=== PATIENT | female | born 1960 ===

== ENCOUNTER 2019-03-21 08:47 | Inpatient (IN) | payer MEDICAID ==
[2019-03-21 08:54] VITALS: BMI 61.0
--- NOTE | 2019-03-21 10:21 | ED PDOC ---
HPI: Abdomen Time Seen by Provider: 03/21/19 09:32 Chief Complaint (Nursing): Abdominal Pain Chief Complaint (Provider): Abdominal Pain History Per: Patient History/Exam Limitations: no limitations Onset/Duration Of Symptoms: Days Current Symptoms Are (Timing): Still Present Associated Symptoms: Nausea, Vomiting. denies: Chest Pain Additional Complaint(s): 58 year old female with a past medical history of hypertension, hypercholesterolemia, diabetes, and depression who is presenting to the ED for evaluation of abdominal pain and vomiting ongoing for 2 weeks. Patient states that she is unable to tolerate PO and also complains of throat tightness which makes it difficult to swallow. She admits to having a gastric bypass a long time ago and denies any diarrhea, chest pain, or shortness of breath. Patient offers no other medical complaints at this time. PMD: Levi Sterling V Past Medical History Reviewed: Historical Data, Nursing Documentation, Vital Signs Vital Signs: Last Vital Signs Temp 97.9 F 03/21/19 08:54 Pulse 81 03/21/19 08:54 Resp 18 03/21/19 08:54 BP 135/85 03/21/19 08:54 Pulse Ox 99 03/21/19 08:54 - Medical History PMH: Anxiety, Arthritis, Bipolar Disorder, Depression, Diabetes, HTN, Hypercholesterolemia, Schizophrenia Denies: Hepatitis, HIV, Chronic Kidney Disease, Seizures, Sexually Transmitted Disease - Surgical History Surgical History: Cholecystectomy Denies: Coronary Stent - Family History Family History: States: Unknown Family Hx - Social History Current smoker - smoking cessation education provided: Yes Alcohol: None Drugs: Denies - Immunization History Hx Tetanus Toxoid Vaccination: Yes Hx Influenza Vaccination: Yes (07/2015) Hx Pneumococcal Vaccination: Yes (04/2015) - Home Medications Home Medications: Ambulatory Orders Medication Instructions Recorded ALPRAZolam [Xanax] 1 mg PO Q8 PRN 04/16/16 Pramipexole [Mirapex] 0.5 mg PO TID 04/16/16 Zolpidem [Ambien] 10 mg PO HS PRN 04/16/16 traZODone [Desyrel] 200 mg PO HS 04/16/16 Dicyclomine [Bentyl] 20 mg PO QID PRN #10 tab 03/21/19 Escitalopram [Lexapro] 10 mg PO DAILY 03/21/19 FLUoxetine [Prozac] 10 mg PO DAILY 03/21/19 Ondansetron ODT [Zofran ODT] 4 mg PO Q8H PRN #20 odt 03/21/19 Oxycodone HCl/Acetaminophen 1 tab PO Q6 PRN 03/21/19 [Percocet 10-325 mg Tablet] SUMAtriptan [Imitrex Tab] 50 mg PO Q12 PRN 03/21/19 - Allergies Allergies/Adverse Reactions: Allergies Allergy/AdvReac Type Severity Reaction Status Date / Time haloperidol [From Haldol] Allergy RASH Verified 03/21/19 09:26 haloperidol lactate Allergy RASH Verified 03/21/19 09:26 [From Haldol] Review of Systems ROS Statement: Except As Marked, All Systems Reviewed And Found Negative ENT: Positive for: Throat Pain (and tightness ) Cardiovascular: Negative for: Chest Pain Respiratory: Negative for: Shortness of Breath Gastrointestinal: Positive for: Nausea, Vomiting, Abdominal Pain. Negative for: Diarrhea Physical Exam - Reviewed Nursing Documentation Reviewed: Yes Vital Signs Reviewed: Yes - Physical Exam Appears: Positive for: Non-toxic, No Acute Distress (patient appears morbidly obese ) Head Exam: Positive for: ATRAUMATIC Skin: Positive for: Normal Color, Warm, DRY Eye Exam: Positive for: EOMI, Normal appearance, PERRL Neck: Positive for: Normal, Painless ROM, Supple Cardiovascular/Chest: Positive for: Regular Rate, Rhythm. Negative for: Murmur Respiratory: Positive for: Normal Breath Sounds. Negative for: Respiratory Distress Gastrointestinal/Abdominal: Positive for: Soft, Tenderness (bilateral upper quadrant tenderness ). Negative for: Distended, Guarding, Rebound Back: Positive for: Normal Inspection. Negative for: L CVA Tenderness, R CVA Tenderness, Vertebral Tenderness Extremity: Positive for: Normal ROM. Negative for: Deformity Neurological/Psych: Positive for: Awake, Alert, Normal Tone, Oriented (x3). Negative for: Motor/Sensory Deficits - Laboratory Results Result Diagrams: 03/21/19 10:20 03/21/19 10:20 - ECG O2 Sat by Pulse Oximetry: 99 (RA) Pulse Ox Interpretation: Normal Medical Decision Making Medical Decision Making: Time: 10:10 Plan: --CT Abd/Pelvis --CT Neck Soft Tissue --EKG --CMP --ED Urine Dipstick --CBC --Coags --CXR --Urinalysis Accession No. : [id number] Patient Name / ID : BECKY RUBIN / [id number] Exam Date : 03/21/2019 12:02:04 ( Approved ) Study Comment : Sex / Age : F / 58Y Creator : Xochilt Wells Dictator : Xochilt Wells Machine Gun Mechanic : Machine Feed Operator : Xochilt Wells Approver2 : Report Date : 03/21/2019 13:00:11 My Comment : Date of service: 03/21/2019 PROCEDURE: CT Abdomen and Pelvis with contrast HISTORY: BUQ pain COMPARISON: 05/09/2015 TECHNIQUE: Contrast dose: 95 mL of Omnipaque 300 Radiation dose: Total exam DLP = 866.95 mGy-cm. This CT exam was performed using one or more of the following dose reduction techniques: Automated exposure control, adjustment of the mA and/or kV according to patient size, and/or use of iterative reconstruction technique. FINDINGS: LOWER THORAX: A probable hiatal hernia is present. LIVER: Unremarkable. No gross lesion or ductal dilatation. GALLBLADDER AND BILE DUCTS: Surgical clips right upper quadrant compatible with prior cholecystectomy PANCREAS: Unremarkable. No gross lesion or ductal dilatation. SPLEEN: Nonvisualized-inferred prior splenectomy in this was referenced on the prior rep ort. ADRENALS: Unremarkable. No mass. KIDNEYS AND URETERS: A sub cm hypodensity in the midpole of the right kidney on current axial series 3, image 77 is similar to that seen on series 2, image 74. The fullness to the left intra and extra renal collecting system is similar. A developmental laron iation left pelviectasis versus mild left ureterovesical junction obstruction is another. Appearance is unchanged since 2014. On coronal series 601, image 62 there is vague hypodensity in the lower pole the right kidney there is paucity of internal body fat here impeding optimal . Evaluation and lack of any oral contrast in the amount of intravenous contrast appears very minimal. this may be related to timing of the imaging VASCULATURE: Unremarkable. No aortic aneurysm. No aortic atherosclerotic calcification or mural plaque present. BOWEL: Redundancy of the colon. Extensive stool retention. No gross obstruction. No gross mural thickening. APPENDIX: Not clearly identified. No gross pericecal inflammatory changes noted. PERITONEUM: Unremarkable. No free fluid. No free air. LYMPH NODES: Unremarkable. No enlarged lymph nodes. BLADDER: Unremarkable. REPRODUCTIVE: Unremarkable. BONES: No acute fracture. OTHER FINDINGS: Epigastric left upper quadrant postsurgical changes similar in appearance gastric bypass surgery inferred. Fat containing midline ventral [id number] no bowel containing hernia noted. IMPRESSION: No gross obstructing urolithiasis. The fullness to the left intra and extra renal pelvis and proximal left ureter are similar since 2014 developmental variation and/or mild left ureteropelvic junction obstruction are some considerations. Appearance is stable. In the midpole of the right kidney a similar sub cm hypodensity is noted. Primarily on the coronal images there is perceived inferior right renal cortical hypodensity of unclear, if any significance. There is paucity of internal body fat meta contrast enhancement here is limited accentuating differential parenchymal density. As a precaution, consider targeted renal ultrasound attention to this inferior right renal pole for further clarification. Other findings as above. Accession No. : [id number] Patient Name / ID : BECKY RUBIN / [id number] Exam Date : 03/21/2019 11:58:35 ( Approved ) Study Comment : Sex / Age : F / 58Y Creator : Papa Subramanian MD Dictator : Papa Subramanian MD Machine Gun Mechanic : Machine Feed Operator : Papa Subramanian MD Approver2 : Report Date : 03/21/2019 12:35:31 My Comment : Date of service: 03/21/2019 PROCEDURE: CT NECK WITHOUT CONTRAST HISTORY: Throat tightness Additional clinical history provided by the emergency department physician involved in the care and management of the patient: No recent trauma. Normal white count. COMPARISON: None TECHNIQUE: CT of the neck without intravenous contrast. Coronal and sagittal reformats generated. Radiation dose: Total exam DLP = 261.29 mGy-cm. This CT exam was performed using one or more of the following dose reduction techniques: Automated exposure control, adjustment of the mA and/or kV according to patient size, and/or use of iterative reconstruction technique. FINDINGS: NASOPHARYNX: Unremarkable. SUPRAHYOID NECK: Unremarkable oropharynx, oral cavity, parapharyngeal space and retropharyngeal space. INFRAHYOID NECK: Unremarkable larynx, hypopharynx, and supraglottic space. Vocal cords intact. MASS: None. GLANDS: Parotid and submandibular glands unremarkable. Normal size thyroid gland, without nodule. LYMPH NODES: Mildly enlarged level 2A and 2B lymph nodes bilaterally. Smaller level 1, submandibular lymph nodes seen bilaterally. CERVICAL SPINE: No fracture or focal lesion. OTHER FINDINGS: None. IMPRESSION: Small bilateral lymph nodes likely infectious/inflammatory. No visualized radiopaque foreign body. 14:[address] Tamez, will come evaluate. 14:36 Dr. Tamez evaluated patient in the ED and recommends CT Chest without contrast and admission for endoscopy tomorrow. Scribe Attestation: Documented by Stephany Meehan, acting as a scribe for Minnie Dickerson MD. Provider Scribe Attestation: All medical record entries made by the Scribe were at my direction and personally dictated by me. I have reviewed the chart and agree that the record accurately reflects my personal performance of the history, physical exam, [facility] decision making, and the department course for this patient. I have also personally directed, reviewed, and agree with the discharge instructions and disposition. Disposition - Clinical Impression Clinical Impression: Esophageal obstruction - Patient ED Disposition Is Patient to be Admitted: Yes - Disposition Disposition Time: 14:30 Condition: STABLE - Pt Status Changed To: Hospital Disposition Of: Inpatient - Admit Certification Admit to Inpatient:: After my assessment, the patient will require hospitalization for at least two midnights. This is because of the severity of symptoms shown, intensity of services needed, and/or the medical risk in this patient being treated as an outpatient. - POA Present On Arrival: None
[2019-03-21 10:51] LABS: BASO % 1.2 % (0.0-2.0); HEMOGLOBIN 8.8 g/dL (12.0-16.0); LYMPH % 51.3 % (20.0-40.0); MEAN CORPUSCULAR HEMOGLOBIN 22.7 pg (27.0-31.0); MEAN CORPUSCULAR HGB CONC 31.5 g/dL (33.0-37.0); MONO # 0.3 K/uL (0.0-0.8); NEUT # 1.5 K/uL (1.8-7.0); NEUT % 38.5 % (50.0-75.0); NRBC % 0.1 % (0.0-0.0); RBC 3.88 Mil/uL (3.80-5.20); RED CELL DISTRIBUTION WIDTH 18.4 % (11.5-14.5)
--- NOTE | 2019-03-21 10:53 | RAD ---
Date of service: 03/21/2019 HISTORY: Abd pain COMPARISON: 02/24/2016 TECHNIQUE: 1 view obtained. FINDINGS: LUNGS: No active pulmonary disease. PLEURA: No significant pleural effusion identified, no pneumothorax apparent. CARDIOVASCULAR: No aortic atherosclerotic calcification present. Minimal cardiomegaly suspect left ventricular enlargement configuration probable. No pulmonary vascular congestion. OSSEOUS STRUCTURES: Thoracic spondylosis. VISUALIZED UPPER ABDOMEN: Normal. OTHER FINDINGS: None. IMPRESSION: No interval pathology noted. Mild left ventricular enlargement.
[2019-03-21 10:54] LABS: PROTHROMBIN TIME 11.4 Seconds (9.8-13.1)
[2019-03-21 10:56] LABS: SQUAMOUS EPITHIAL < 1 /hpf (0-5); URINE BILIRUBIN NEGATIVE (NEGATIVE); URINE BLOOD NEGATIVE (NEGATIVE); URINE CLARITY CLEAR (Clear); URINE COLOR YELLOW (YELLOW); URINE GLUCOSE (UA) NEG (NEGATIVE); URINE LEUKOCYTE ESTERASE NEG Leu/uL (Negative); URINE PROTEIN NEGATIVE (NEGATIVE); URINE UROBILINOGEN 0.2-1.0 mg/dL (0.2-1.0)
[2019-03-21 10:56] LABS: PARTIAL THROMBOPLASTIN TIME 29.6 Seconds (25.6-37.1)
[2019-03-21 10:57] LABS: ALB/GLOB RATIO 1.2 (1.0-2.1); ALBUMIN 4.2 g/dL (3.5-5.0); BLOOD UREA NITROGEN 13 mg/dl (7-17); CALCIUM 8.9 mg/dL (8.4-10.2); GFR NON-AFRICAN AMERICAN > 60
[2019-03-21 11:21] LABS: ALT/SGPT 27 U/L (9-52); AST/SGOT 40 U/L (14-36)
[2019-03-21] MEDS ORDERED: Iohexol 300 100 ML IJ ONE (11:54)
[2019-03-21] MEDS ORDERED: Sodium Chloride 0.9% 50 ML IV ONE (11:55)
--- NOTE | 2019-03-21 12:39 | CT ---
Date of service: 03/21/2019 PROCEDURE: CT NECK WITHOUT CONTRAST HISTORY: Throat tightness Additional clinical history provided by the emergency department physician involved in the care and management of the patient: No recent trauma. Normal white count. COMPARISON: None TECHNIQUE: CT of the neck without intravenous contrast. Coronal and sagittal reformats generated. Radiation dose: Total exam DLP = 261.29 mGy-cm. This CT exam was performed using one or more of the following dose reduction techniques: Automated exposure control, adjustment of the mA and/or kV according to patient size, and/or use of iterative reconstruction technique. FINDINGS: NASOPHARYNX: Unremarkable. SUPRAHYOID NECK: Unremarkable oropharynx, oral cavity, parapharyngeal space and retropharyngeal space. INFRAHYOID NECK: Unremarkable larynx, hypopharynx, and supraglottic space. Vocal cords intact. MASS: None. GLANDS: Parotid and submandibular glands unremarkable. Normal size thyroid gland, without nodule. LYMPH NODES: Mildly enlarged level 2A and 2B lymph nodes bilaterally. Smaller level 1, submandibular lymph nodes seen bilaterally. CERVICAL SPINE: No fracture or focal lesion. OTHER FINDINGS: None. IMPRESSION: Small bilateral lymph nodes likely infectious/inflammatory. No visualized radiopaque foreign body. Communication of results: I discussed findings with the attending physician in the emergency department at 12:34.
--- NOTE | 2019-03-21 13:03 | CT ---
Date of service: 03/21/2019 PROCEDURE: CT Abdomen and Pelvis with contrast HISTORY: BUQ pain COMPARISON: 05/09/2015 TECHNIQUE: Contrast dose: 95 mL of Omnipaque 300 Radiation dose: Total exam DLP = 866.95 mGy-cm. This CT exam was performed using one or more of the following dose reduction techniques: Automated exposure control, adjustment of the mA and/or kV according to patient size, and/or use of iterative reconstruction technique. FINDINGS: LOWER THORAX: A probable hiatal hernia is present. LIVER: Unremarkable. No gross lesion or ductal dilatation. GALLBLADDER AND BILE DUCTS: Surgical clips right upper quadrant compatible with prior cholecystectomy PANCREAS: Unremarkable. No gross lesion or ductal dilatation. SPLEEN: Nonvisualized-inferred prior splenectomy in this was referenced on the prior report. ADRENALS: Unremarkable. No mass. KIDNEYS AND URETERS: A sub cm hypodensity in the midpole of the right kidney on current axial series 3, image 77 is similar to that seen on series 2, image 74. The fullness to the left intra and extra renal collecting system is similar. A developmental variation left pelviectasis versus mild left ureterovesical junction obstruction is another. Appearance is unchanged since 2015. On coronal series 601, image 62 there is vague hypodensity in the lower pole the right kidney there is paucity of internal body fat here impeding optimal . Evaluation and lack of any oral contrast in the amount of intravenous contrast appears very minimal. this may be related to timing of the imaging VASCULATURE: Unremarkable. No aortic aneurysm. No aortic atherosclerotic calcification or mural plaque present. BOWEL: Redundancy of the colon. Extensive stool retention. No gross obstruction. No gross mural thickening. APPENDIX: Not clearly identified. No gross pericecal inflammatory changes noted. PERITONEUM: Unremarkable. No free fluid. No free air. LYMPH NODES: Unremarkable. No enlarged lymph nodes. BLADDER: Unremarkable. REPRODUCTIVE: Unremarkable. BONES: No acute fracture. OTHER FINDINGS: Epigastric left upper quadrant postsurgical changes similar in appearance gastric bypass surgery inferred. Fat containing midline ventral [id number] no bowel containing hernia noted. IMPRESSION: No gross obstructing urolithiasis. The fullness to the left intra and extra renal pelvis and proximal left ureter are similar since 2015 developmental variation and/or mild left ureteropelvic junction obstruction are some considerations. Appearance is stable. In the midpole of the right kidney a similar sub cm hypodensity is noted. Primarily on the coronal images there is perceived inferior right renal cortical hypodensity of unclear, if any significance. There is paucity of internal body fat meta contrast enhancement here is limited accentuating differential parenchymal density. As a precaution, consider targeted renal ultrasound attention to this inferior right renal pole for further clarification. Other findings as above. Comments: Study marked for PA review .
--- NOTE | 2019-03-21 16:01 | CP.PCM.CON ---
History of Present Illness - History of Present Illness History of Present Illness: 58 yo female with h/o gastric bypass many years agoadmitted with progressive difficulty swallowing over the past 2 weeks. Initially to solids but now to liquids. Patient has morbid obesity and had gastric bypass years ago. Smokes cigarettes about 1 pack per day, She has also been having epigastric pain when swallowing Review of Systems - Constitutional Constitutional: absent: Chills - EENT Eyes: absent: Change in Vision Ears: absent: Ear Discharge Nose/Mouth/Throat: absent: Epistaxis - Breasts Breasts: absent: Change in Shape - Cardiovascular Cardiovascular: absent: Chest Pain - Respiratory Respiratory: absent: Cough - Gastrointestinal Gastrointestinal: Abdominal Pain - Genitourinary Genitourinary: absent: Change in Urinary Stream Past Patient History - Infectious Disease Hx of Infectious Diseases: None - Past Medical History & Family History Past Medical History?: Yes - Past Social History Alcohol: None Drugs: Denies - CARDIAC Hx Hypercholesterolemia: Yes Hx Hypertension: Yes - PULMONARY Hx Respiratory Disorders: No - NEUROLOGICAL Hx Seizures: No - HEENT Hx HEENT Problems: No Other/Comment: uses bifocal eyeglasses - RENAL Hx Chronic Kidney Disease: No - ENDOCRINE/METABOLIC Hx Endocrine Disorders: Yes Hx Diabetes Mellitus Type 2: Yes - HEMATOLOGICAL/ONCOLOGICAL Hx Human Immunodeficiency Virus (HIV): No - INTEGUMENTARY Hx Dermatological Problems: No - MUSCULOSKELETAL/RHEUMATOLOGICAL Hx Arthritis: Yes - GASTROINTESTINAL Hx Gastrointestinal Disorders: No - GENITOURINARY/GYNECOLOGICAL Hx Sexually Transmitted Disorders: No - PSYCHIATRIC Hx Anxiety: Yes Hx Bipolar Disorder: Yes Hx Depression: Yes Hx Schizophrenia: Yes - SURGICAL HISTORY Hx Cholecystectomy: Yes Hx Coronary Stent: No - ANESTHESIA Hx Anesthesia: Yes Hx Anesthesia Reactions: No Hx Malignant Hyperthermia: No Meds Home Medications: Home Medication List Medication Instructions Recorded Confirmed Type Dicyclomine [Bentyl] 20 mg PO QID PRN #10 tab 03/21/19 Rx Ondansetron ODT [Zofran ODT] 4 mg PO Q8H PRN #20 odt 03/21/19 Rx Allergies/Adverse Reactions: Allergies Allergy/AdvReac Type Severity Reaction Status Date / Time haloperidol [From Haldol] Allergy RASH Verified 03/21/19 09:26 haloperidol lactate Allergy RASH Verified 03/21/19 09:26 [From Haldol] Physical Exam - Head Exam Head Exam: NORMAL INSPECTION - Eye Exam Eye Exam: Normal appearance - ENT Exam ENT Exam: Normal Exam - Neck Exam Neck exam: Positive for: Normal Inspection - Respiratory Exam Respiratory Exam: Clear to Auscultation Bilateral - Cardiovascular Exam Cardiovascular Exam: REGULAR RHYTHM - GI/Abdominal Exam GI & Abdominal Exam: Normal Bowel Sounds, Soft. absent: Tenderness Results - Vital Signs Recent Vital Signs: Last Vital Signs Temp 97.9 F 03/21/19 08:54 Pulse 81 03/21/19 08:54 Resp 18 03/21/19 08:54 BP 135/85 03/21/19 08:54 Pulse Ox 99 03/21/19 15:32 - Labs Result Diagrams: 03/21/19 10:20 03/21/19 10:20 Labs: Laboratory Results - last 24 hr 03/21/19 03/21/19 03/21/19 10:20 10:20 10:20 WBC 4.0 L RBC 3.88 Hgb 8.8 L Hct 28.0 L MCV 72.0 L D MCH 22.7 L MCHC 31.5 L RDW 18.4 H Plt Count 532 H D MPV 7.0 L Neut % (Auto) 38.5 L Lymph % (Auto) 51.3 H [place] % (Auto) 8.0 Eos % (Auto) 1.0 Baso % (Auto) 1.2 Neut # (Auto) 1.5 L Lymph # (Auto) 2.0 [place] # (Auto) 0.3 Eos # (Auto) 0.0 Baso # (Auto) 0.0 PT 11.4 INR 1.0 APTT 29.6 Sodium 137 Potassium 4.4 Chloride 106 Carbon Dioxide 25 Anion Gap 10 BUN 13 Creatinine 0.4 L Est GFR ( Amer) > 60 Est GFR (Non-Af Amer) > 60 Random Glucose 102 Calcium 8.9 Total Bilirubin 0.7 AST 40 H ALT 27 Alkaline Phosphatase 114 Total Protein 7.8 Albumin 4.2 Globulin 3.6 Albumin/Globulin Ratio 1.2 Urine Color Urine Clarity Urine pH Ur Specific [place] Urine Protein Urine Glucose (UA) Urine Ketones Urine Blood Urine Nitrate Urine Bilirubin Urine Urobilinogen Ur Leukocyte Esterase Urine RBC (Auto) Urine Microscopic WBC Ur Squamous Epith Cells 03/21/19 10:37 WBC RBC Hgb Hct MCV MCH MCHC RDW Plt Count MPV Neut % (Auto) Lymph % (Auto) [place] % (Auto) Eos % (Auto) Baso % (Auto) Neut # (Auto) Lymph # (Auto) [place] # (Auto) Eos # (Auto) Baso # (Auto) PT INR APTT Sodium Potassium Chloride Carbon Dioxide Anion Gap BUN Creatinine Est GFR ( Amer) Est GFR (Non-Af Amer) Random Glucose Calcium Total Bilirubin AST ALT Alkaline Phosphatase Total Protein Albumin Globulin Albumin/Globulin Ratio Urine Color Yellow Urine Clarity Clear Urine pH 6.0 Ur Specific [place] 1.010 Urine Protein Negative Urine Glucose (UA) Neg Urine Ketones Negative Urine Blood Negative Urine Nitrate Negative Urine Bilirubin Negative Urine Urobilinogen 0.2-1.0 Ur Leukocyte Esterase Neg Urine RBC (Auto) 1 Urine Microscopic WBC < 1 Ur Squamous Epith Cells < 1 - Imaging and Cardiology CT scan - abdomen Status: Report reviewed by me Chest x-ray Status: Report reviewed by me Assessment & Plan (1) Dysphagia Assessment and Plan: Progressive dysphagia associated with Fe deficiency anemia. . CT chest today. Upper endoscopy in AM. IV hydration and PPI. Status: Acute
[2019-03-21] MEDS: Lactated Ringer's 1,000 ML IV SCH (16:57)
--- NOTE | 2019-03-21 17:11 | CT ---
Date of service: 03/21/2019 PROCEDURE: CT Chest without contrast HISTORY: Obstruction COMPARISON: None available. TECHNIQUE: Contiguous axial images were obtained through the chest without intravenous contrast enhancement. Sagittal and coronal reconstructions were performed. Radiation dose: Total exam DLP = 862.42 mGy-cm. This CT exam was performed using one or more of the following dose reduction techniques: Automated exposure control, adjustment of the mA and/or kV according to patient size, and/or use of iterative reconstruction technique. FINDINGS: LUNGS: Clear lungs. Visualized airway clear MEDIASTINUM: Unremarkable thoracic aorta. No aneurysm. Normal sized heart. Dilated main pulmonary artery 3.9 cm consistent with pulmonary arterial hypertension. No lymphadenopathy. No aortic atherosclerotic calcification. PLEURA: No pleural fluid. No pneumothorax. BONES: No fracture. No destructive lesion. UPPER ABDOMEN: Postoperative findings left upper quadrant include those related to gastric surgery/bypass and splenectomy. OTHER FINDINGS: None. IMPRESSION: No acute findings related to/ accounting for the clinical presentation. Additional benign and/or incidental findings described above.
--- NOTE | 2019-03-21 19:42 | CARD ---
APPROVED REPORT Date of service: 03/21/2019 EKG Measurement Heart [id number] <Conclusion> Normal sinus rhythm Possible Left atrial enlargement Borderline ECG
[2019-03-21] MEDS ORDERED: Oxycodone/Acetaminophen 5/325 mg Tab PO PRN (23:02)
[2019-03-22] MEDS ORDERED: Ketamine 50 mg/ml Inj (10 ml) ONE (07:48)
[2019-03-22] MEDS ORDERED: Etomidate 20 mg/10ml Inj IV ONE (07:49)
[2019-03-22] MEDS ORDERED: Midazolam 2 MG/2 ML VIAL ONE (07:49)
[2019-03-22] MEDS ORDERED: Lidocaine 1% 5ml Abboject ONE (07:49)
[2019-03-22] MEDS ORDERED: Propofol 10 mg/ml Inj (20 ML) ONE (07:50)
[2019-03-22] MEDS ORDERED: Lactated Ringer's 500 ML IV ONE (08:30)
[2019-03-22 13:52] LABS: HEMOGLOBIN 8.8 g/dL (12.0-16.0); MEAN CELL VOLUME 71.2 fl (81.0-99.0); MEAN CORPUSCULAR HEMOGLOBIN 22.6 pg (27.0-31.0); MEAN CORPUSCULAR HGB CONC 31.7 g/dL (33.0-37.0); RBC 3.9 Mil/uL (3.80-5.20); RED CELL DISTRIBUTION WIDTH 18.1 % (11.5-14.5); WHITE BLOOD COUNT 4.2 K/uL (4.8-10.8)
[2019-03-22 14:53] LABS: IRON 17 ug/dL (37-170)
[2019-03-22 15:03] LABS: % IRON SATURATION 4 % (20-55); TOTAL IRON BINDING CAPACITY 409 ug/dL (250-450)
[2019-03-22 15:15] LABS: BLOOD UREA NITROGEN 9 mg/dl (7-17); CALCIUM 9.2 mg/dL (8.4-10.2); GFR NON-AFRICAN AMERICAN > 60
[2019-03-22 15:32] LABS: FERRITIN 7.8 ng/Ml (11.1-264.0)
[2019-03-22 16:24] VITALS: RESP 20
[2019-03-22] MEDS: Lactated Ringer's 1,000 ML IV SCH (22:00)
--- NOTE | 2019-03-23 06:19 | HP ---
HISTORY OF PRESENT ILLNESS: This is a 58-year-old female who is morbidly obese, status post gastric bypass surgery and splenectomy, presented to emergency room with symptoms of upper abdominal pain, nausea, and vomiting that has been progressive over the last 2 weeks. The patient was evaluated in emergency room and admitted for further management after consulting GI. Other review of system is negative. ALLERGIES: POSITIVE TO HALOPERIDOL. PAST MEDICAL HISTORY: As above. SOCIAL HISTORY: Denied smoking, EtOH, or substance abuse. FAMILY HISTORY: Not contributory. PHYSICAL EXAMINATION: GENERAL: The patient is not in any cardiopulmonary distress at the time of this examination. VITAL SIGNS: Blood pressure 156/78, temperature 97, respiratory rate 18, and pulse 82. HEENT: Pupils equal and reactive to light. Normal-appearing mucosa of the conjunctivae, oropharynx, and nasal membrane mucosa. NECK: Supple. No JVD. No carotid bruit. No lymph node. No thyromegaly. CHEST AND LUNGS: Bilateral symmetrical expansion. Good air exchange. No rales. No rhonchi. CARDIOVASCULAR SYSTEM: PMI not localized. S1, S2. No additional sounds. ABDOMEN: Normoactive bowel sounds. No tenderness. No organomegaly. No masses. EXTREMITIES: No cyanosis, no clubbing, no edema. CENTRAL NERVOUS SYSTEM: Alert, awake, oriented x2. No neurological deficit could be appreciated. ASSESSMENT: The patient is status post esophagogastroduodenoscopy that showed gastritis. PLAN: Continue proton pump inhibitors and can add sucralfate. We will discuss with GI to add sucralfate. We will continue proton pump inhibitor. We will add sucralfate. Deep venous thrombosis prophylaxis. Follow gastrointestinal recommendations. Roney Glover MD
[2019-03-23 09:01] VITALS: BP 131/86; PULSE 67; TEMP 97.5; O2SAT 98
--- NOTE | 2019-03-24 01:05 | DS ---
REASON FOR ADMISSION: This is a 58-year-old male with history of morbid obesity, status post gastric bypass surgery, was admitted for upper abdominal pain and vomiting. COURSE OF HOSPITALIZATION: The patient was admitted to medical floor, and she was started on IV fluid. The patient had a GI consultation done by Dr. Tamez, and she was found to have gastritis and started on Protonix. The patient had also biopsy done. The patient has microcytic anemia. She will need GI workup by colonoscopy. The patient was asked to follow up with Dr. Tamez for colonoscopy as well as supplementation of iron. FINAL DIAGNOSES: 1. Gastritis. 2. Iron-deficiency anemia. [facility] MD Adalberto
== END 2019-03-23 18:49 | disposition home or self-care (01) | DRG 182 ==
LOC: H.ER 08:47 → H.ERHOLD 14:34 → H.MEDSURG1 18:25
PROVIDERS: ADMIT Internal Medicine; ATTEND Internal Medicine
PROC: 0DB68ZX Excision of Stomach, Via Natural or Artificial Opening Endoscopic, Diagnostic (ICD-10-PCS; principal; 2019-03-22 08:00)
DX: K29.50 Unspecified chronic gastritis without bleeding (principal); F20.9 Schizophrenia, unspecified; D50.8 Other iron deficiency anemias; K21.0 Gastro-esophageal reflux disease with esophagitis; E66.01 Morbid (severe) obesity due to excess calories; Z68.44 Body mass index [BMI] 60.0-69.9, adult; R13.19 Other dysphagia; E11.9 Type 2 diabetes mellitus without complications; I10 Essential (primary) hypertension; E78.00 Pure hypercholesterolemia, unspecified; Z98.84 Bariatric surgery status; F17.210 Nicotine dependence, cigarettes, uncomplicated; F31.9 Bipolar disorder, unspecified; F41.9 Anxiety disorder, unspecified; Z90.81 Acquired absence of spleen